=== PATIENT | male | born 1995 | race Caucasian/White ===

== ENCOUNTER 2020-05-11 12:51 | Emergency (ER) | payer OTHER ==
[~2020-05-11] VITALS: Ht 190.5 cm; Wt 73.5 kg
[2020-05-11 13:02] VITALS: BP 158/94; Ht 190.5 cm; Wt 73.5 kg
== END 2020-05-11 15:09 | disposition left against medical advice (07) ==
LOC: ED 12:51
DX: Z53.21 Procedure and treatment not carried out due to patient leaving prior to being seen by health care provider (principal)